=== PATIENT | female | born 1965 | race American Indian/Alaskan Native ===

== ENCOUNTER 2017-08-21 16:37 | Emergency (ER) | payer MEDICAID, OTHER ==
[2017-08-21 16:37] VITALS: BMI 24.4
[2017-08-21 17:48] VITALS: RESP 18; O2SAT 98
--- NOTE | 2017-08-21 18:34 | C.PDOC ---
History Of Present Illness 52 year old female presents to the ED c/o 3 weeks history of pain to the left back thoracic region associated with runny nose, productive cough with phlegm, post tussive emesis. Patient reports she was seen by Dr. Ibanez who prescribed her some pain medications but did not gave any antibiotics, or do an CXR. Patient presents today thinking she has a lung infection. Patient denies fever, headache, neck pain, neck stiffness, SOB, CP. Time Seen by Provider: 08/21/17 18:04 Chief Complaint (Nursing): Cough, Cold, Congestion History Per: Patient History/Exam Limitations: no limitations Onset/Duration Of Symptoms: Days Current Symptoms Are (Timing): Still Present Location Of Pain: Throat Sick Contacts (Context): None Associated Symptoms: Cough, Sputum. denies: Fever, Chills Ear Symptoms: Bilateral: None Recent travel outside of the [place]: No Additional History Per: Patient Past Medical History Reviewed: Historical Data, Nursing Documentation, Vital Signs Vital Signs: Last Vital Signs Temp 98.1 F 08/21/17 17:45 Pulse 72 08/21/17 17:45 Resp 18 08/21/17 17:45 BP 168/101 H 08/21/17 17:45 Pulse Ox 98 08/21/17 18:51 - Medical History PMH: Anxiety, Arthritis, Asthma, Atrial Fibrillation, Back Problems, Bronchitis , COPD, Depression, Diabetes, Gastritis, Gastrointestinal Ulcer, HTN, Kidney Stones, Pneumonia Comment Only: CHF (heart murmur) Surgical History: Coronary Stent - [facility] CLOSURE SKIN & SUBCUTANEOUS NEC (05/15/03) CORONAR ARTERIOGR-2 CATH (09/19/13) CORONARY ARTERY STENT INSERTION [id number] (09/23/13) EXCIS DEBRIDE OF WOUND, INFECT, OR BURN (05/15/03) INJECT/INFUSE NEC (12/09/13) INSERTION OF ONE VASCULAR STENT (09/23/13) LEFT HEART CARDIAC CATH (09/19/13) LT HEART ANGIOCARDIOGRAM (09/19/13) NEBULIZER THERAPY (11/14/03) OP RED-INT FIX TIB/FIBUL (05/15/03) PERCUTANEOUS TRANSLUMINAL CORONARY ANGIOPLASTY [PTCA] (09/23/13) PROCEDURE ON SINGLE VESSEL (09/23/13) Family History: States: Unknown Family Hx - Social History Hx Tobacco Use: No Hx Alcohol Use: No Hx Substance Use: No - Immunization History Hx Tetanus Toxoid Vaccination: No Hx Influenza Vaccination: No Hx Pneumococcal Vaccination: No Review Of Systems Constitutional: Negative for: Fever, Chills ENT: Positive for: Nose Discharge, Throat Pain Respiratory: Positive for: Cough, Sputum Gastrointestinal: Positive for: Vomiting Skin: Negative for: Rash Neurological: Negative for: Weakness, Numbness Physical Exam - Physical Exam Appears: Non-toxic, No Acute Distress, Other (obese) Skin: Normal Color, Warm, Dry Head: Atraumatic, Normacephalic Eye(s): bilateral: Normal Inspection Ear(s): Bilateral: Normal Nose: No Discharge Oral Mucosa: Moist Throat: Normal, No Erythema, No Exudate Neck: Normal ROM, Supple Chest: Symmetrical Respiratory: Normal Breath Sounds, No Rales, No Rhonchi, No Wheezing Extremity: Normal ROM, No Tenderness, No Swelling Neurological/Psych: Oriented x3, Normal Speech Gait: Steady ED Course And Treatment O2 Sat by Pulse Oximetry: 98 (ON RA) Pulse Ox Interpretation: Normal Medical Decision Making Medical Decision Making: Impression: productive cough, runny nose, vomiting Plan: * CXR * UA Disposition Counseled Patient/Family Regarding: Studies Performed, Need For Followup, Rx Given - Disposition Referrals: Mario Ibanez MD [Staff Provider] - Disposition: HOME/ ROUTINE Disposition Time: 18:50 Condition: STABLE Prescriptions: Prednisone [Deltasone] 60 mg PO DAILY #12 tablet Instructions: Upper Respiratory Infection (ED) Forms: General Discharge Instructions, [facility] (Guatemalan), Work Excuse - POA Present On Arrival: None - Clinical Impression Clinical Impression: Influenza-like illness, Viral disease - Scribe Statement The provider has reviewed the documentation as recorded by the Scribe Gennaro Cotter All medical record entries made by the Scribe were at my direction and personally dictated by me. I have reviewed the chart and agree that the record accurately reflects my personal performance of the history, physical exam, medical decision making, and the department course for this patient. I have also personally directed, reviewed, and agree with the discharge instructions and disposition.
[2017-08-21] MEDS ORDERED: Lidocaine 5% Patch TD STA (18:45)
[2017-08-21] MEDS ORDERED: Lidocaine 5% Patch TD ONE (18:58)
[2017-08-21 19:17] VITALS: BP 160/110; PULSE 69; TEMP 97.8
--- NOTE | 2017-08-22 11:26 | RAD ---
HISTORY: cough, right back pain COMPARISON: 06/20/2015. TECHNIQUE: Chest PA and lateral FINDINGS: LUNGS: No active pulmonary disease. PLEURA: No significant pleural effusion identified. No pneumothorax apparent. CARDIOVASCULAR: No radiographic findings to suggest acute or significant cardiovascular disease. OSSEOUS STRUCTURES: No significant abnormalities. VISUALIZED UPPER ABDOMEN: Normal. OTHER FINDINGS: None. IMPRESSION: No active disease. No significant interval change compared to the prior examination(s).
== END 2017-08-21 19:00 | disposition home or self-care (01) ==
LOC: C.ER 16:37
DX: J11.1 Influenza due to unidentified influenza virus with other respiratory manifestations (principal); B34.9 Viral infection, unspecified